=== PATIENT | male | born 1990 | race Caucasian/White ===

== ENCOUNTER 2019-02-19 15:08 | Emergency (ER) | payer SELFPAY ==
[2019-02-19 15:49] VITALS: BP 137/75; PULSE 77; RESP 18; TEMP 98; O2SAT 98
== END 2019-02-19 16:07 | disposition home or self-care (01) | DRG 125 ==
LOC: ED 15:08
DX: H01.004 Unspecified blepharitis left upper eyelid (principal)
CPT/HCPCS: 99282; A6402